=== PATIENT | female | born 1940 | race African-American/Black ===

== ENCOUNTER 2020-02-17 20:35 | Emergency (ER) | payer OTHER ==
[~2020-02-17] VITALS: Ht 170.2 cm; Wt 81.6 kg
[2020-02-17] MEDS ORDERED: cloNIDine HCL 0.1 MG TAB PO ONE (21:00)
[2020-02-17 21:41] LABS: Basophils # (auto) 0 10 ^3/uL (0-0.2); Basophils % (auto) 0.3 % (0.0-2.0); Eosinophils # (auto) 0.4 10 ^3/uL (0-0.8); Eosinophils % (auto) 3.6 % (0.0-7.0); Hematocrit 38.9 % (36.0-46.0); Hemoglobin 11.9 g/dL (12.2-16.2); Lymphocytes # (auto) 2.8 10 ^3/uL (0.4-5.4); Lymphocytes % (auto) 28.4 % (10.0-50.0); Mean Corpuscular Hgb Conc. 30.6 g/dL (32.0-36.0); Mean Corpuscular Volume 75.3 fL (80.0-100.0); Monocytes # (auto) 0.7 10 ^3/uL (0-1.3); Monocytes % (auto) 7.5 % (0.0-12.0); Neutrophils # (auto) 5.9 10 ^3/uL (1.6-8.6); Neutrophils % (auto) 60.2 % (37.0-80.0); Platelet Count (auto) 313 10^3/uL (140-450); Red Blood Cells 5.17 10^6/uL (4.0-5.20); Red Cell Distribution Width 18.7 % (11.8-14.3); White Blood Cell 9.9 10^3/uL (4.4-10.8)
[2020-02-17 21:49] LABS: Chloride 112 mmol/L (98-107); Potassium 3.9 mmol/L (3.5-5.1); Sodium 142 mmol/L (136-145)
[2020-02-17 21:57] LABS: Alanine Aminotransferase 32 U/L (13-56); Albumin 3.3 g/dL (3.4-5.0); Alkaline Phosphatase 80 U/L (45-117); Anion Gap 7 (5-15); Aspartate Aminotransferase 26 U/L (15-37); BUN/Creatinine Ratio 14.3; Bilirubin, Total 0.3 mg/dL (0.2-1.0); Blood Urea Nitrogen 17 mg/dL (7-18); Calcium 8.8 mg/dL (8.5-10.1); Carbon Dioxide 23 mmol/L (21-32); GFR African American 57 mL/min; GFR Non-African American 47 mL/min; Glucose 91 mg/dL (74-106); Total Protein 7.6 g/dL (6.4-8.2)
[2020-02-18] MEDS ORDERED: IOHEXOL 350 MG/ML 100ML IJ ONE (11:51)
[2020-02-18 12:33] VITALS: BP 163/54
[2020-02-18] MEDS ORDERED: cloNIDine HCL 0.1 MG TAB PO ONE (16:00)
[2020-02-18] MEDS ORDERED: cloNIDine HCL 0.1 MG TAB ONE (16:37)
== END 2020-02-18 15:28 | disposition home or self-care (01) ==
LOC: EDBD 20:35 → ER 20:41
DX: R00.1 Bradycardia, unspecified (principal); I16.0 Hypertensive urgency; F41.9 Anxiety disorder, unspecified; I12.9 Hypertensive chronic kidney disease with stage 1 through stage 4 chronic kidney disease, or unspecified chronic kidney disease; E11.22 Type 2 diabetes mellitus with diabetic chronic kidney disease; N18.9 Chronic kidney disease, unspecified
CPT/HCPCS: 36415; 71045; 71275; 80053; 82962; 83880; 84484; 85025; 85379; 99283; Q9967